=== PATIENT | male | born 1950 | race Caucasian/White ===

== ENCOUNTER 2016-11-09 17:02 | Emergency (ER) | payer OTHER, MEDICARE, BC ==
--- NOTE | 2016-11-09 17:20 | ER Document Report ---
ED Medical Screen (RME) - General Stated Complaint: SMASHED FINGER Mode of Arrival: Ambulatory Information source: Patient Notes: Patient presents to the emergency department with crush injury to his left fourth finger. Patient reports he shut the door on his finger. Tetanus is up-to- date. TRAVEL OUTSIDE OF THE [place] IN LAST 30 DAYS: No - Related Data Allergies/Adverse Reactions: No Known Allergies Allergy (Verified 07/30/15 08:35) Past Medical History - Past Medical History Cardiac Medical History: Reports: Hx Hypercholesterolemia Renal/ Medical History: Reports: Hx Benign Prostatic Hyperplasia GI Medical History: Reports: Hx Gastroesophageal Reflux Disease Past Surgical History: Reports: Hx Cholecystectomy - 2011 - Immunizations Hx Diphtheria, Pertussis, Tetanus Vaccination: Yes Physical Exam - Vital signs Vitals: Temp Pulse Resp BP Pulse Ox 98.0 F 61 16 138/71 H 98 11/09/16 17:17 11/09/16 17:17 11/09/16 17:17 11/09/16 17:17 11/09/16 17:17 Course - Vital Signs Vital signs: Temp Pulse Resp BP Pulse Ox 98.0 F 61 16 138/71 H 98 11/09/16 17:17 11/09/16 17:17 11/09/16 17:17 11/09/16 17:17 11/09/16 17:17
[2016-11-09] MEDS ORDERED: LIDOCAINE 1% INJ-PF (10 MG/ML) 30 ML SDV INJ ONE (17:52)
--- NOTE | 2016-11-09 18:38 | ER Document Report ---
ED Hand/Wrist Injury - General Chief Complaint: Finger Injury Stated Complaint: SMASHED FINGER Mode of Arrival: Ambulatory Information source: Patient TRAVEL OUTSIDE OF THE [place] IN LAST 30 DAYS: No - HPI Injury to: Ring finger - Related Data Allergies/Adverse Reactions: No Known Allergies Allergy (Verified 11/09/16 17:20) Past Medical History - General Information source: Patient - Social History Smoking Status: Never Smoker Cigarette use (# per day): No Chew tobacco use (# tins/day): No Frequency of alcohol use: None Drug Abuse: None Family History: Reviewed & Not Pertinent Patient has suicidal ideation: No Patient has homicidal ideation: No - Past Medical History Cardiac Medical History: Reports: Hx Hypercholesterolemia Renal/ Medical History: Reports: Hx Benign Prostatic Hyperplasia. Denies: Hx Peritoneal Dialysis GI Medical History: Reports: Hx Gastroesophageal Reflux Disease Past Surgical History: Reports: Hx Cholecystectomy - 2011 - Immunizations Hx Diphtheria, Pertussis, Tetanus Vaccination: Yes Review of Systems - Review of Systems Constitutional: No symptoms reported EENT: No symptoms reported Cardiovascular: No symptoms reported Respiratory: No symptoms reported Gastrointestinal: No symptoms reported Genitourinary: No symptoms reported Male Genitourinary: No symptoms reported Musculoskeletal: No symptoms reported Skin: No symptoms reported Hematologic/Lymphatic: No symptoms reported Neurological/Psychological: No symptoms reported Physical Exam - Vital signs Vitals: Temp Pulse Resp BP Pulse Ox 98.0 F 61 16 138/71 H 98 11/09/16 17:17 11/09/16 17:17 11/09/16 17:17 11/09/16 17:17 11/09/16 17:17 Interpretation: Normal - General General appearance: Appears well, Alert - HEENT Head: Normocephalic, Atraumatic Eyes: Normal Pupils: PERRL - Respiratory Respiratory status: No respiratory distress Chest status: Nontender Breath sounds: Normal Chest palpation: Normal - Cardiovascular Rhythm: Regular Heart sounds: Normal auscultation Murmur: No - Abdominal Inspection: Normal Distension: No distension Bowel sounds: Normal Tenderness: Nontender Organomegaly: No organomegaly - Back Back: Normal, Nontender - Extremities General upper extremity: Normal inspection, Nontender, Normal color, Normal ROM , Normal temperature General lower extremity: Normal inspection, Nontender, Normal color, Normal ROM , Normal temperature, Normal weight bearing. No: Edith's sign Hand: Tender, Other - Rainer fracture left ring finger open - Neurological Neuro grossly intact: Yes Cognition: Normal Orientation: AAOx4 [place] Coma Scale Eye Opening: Spontaneous Mattie Coma Scale Verbal: Oriented [place] Coma Scale Motor: Obeys Commands [place] Coma Scale Total: 15 Speech: Normal Motor strength normal: LUE, RUE, LLE, RLE Sensory: Normal - Psychological Associated symptoms: Normal affect, Normal mood - Skin Skin Temperature: Warm Skin Moisture: Dry Skin Color: Normal Course - Vital Signs Vital signs: Temp Pulse Resp BP Pulse Ox 98.0 F 61 16 138/71 H 98 11/09/16 17:17 11/09/16 17:17 11/09/16 17:17 11/09/16 17:17 11/09/16 17:17 - Diagnostic Test Radiology reviewed: Reports reviewed Procedures - Laceration/Wound Repair Left 4th digit Wound length (cm): 2 Wound's Depth, Shape: Linear, Nail-avulsed Laceration pre-procedure: Betadine prep applied Anesthetic type: 1% Lidocaine Wound explored: Clean Wound Debrided: Minimal Wound Repaired With: Sutures Suture Size/Type: 4:0, Ethilon Layer Closure?: No Post-procedure wound care: Sterile dressing applied, Splint applied Post-procedure NV exam normal: Yes Complications: No Discharge - Discharge Clinical Impression: Closed fracture of tuft of distal phalanx of finger Disposition: HOME, SELF-CARE Additional Instructions: Laceration Care Your laceration has been sutured to keep the skin edges aligned during healing. The time of suture removal depends on the nature and location of your cut. Please follow the care instructions the doctor has outlined for you and return for further care, according to the schedule you've been given. Keep the wound and dressing clean. Unless you were told otherwise, you may shower daily, blotting the wound dry with a clean, unused towel. At other times, If the dressing gets wet or blood soaked, remove it and blot the wound dry, then reapply a new dressing. Unless you were instructed otherwise, dressings should be changed at least daily. If any signs of infection occur (swelling, redness, increasing tenderness, red streaks, tender lumps in the armpit or groin above the laceration, or fever) , see the doctor immediately. Must follow-up with regular doctor in 2 days for reevaluation 10 days for suture removal and follow-up for an orthopedist referral for open tuft fracture. Prescriptions: Tramadol HCl [Ultram 50 mg Tablet] 50 mg PO Q6HP PRN #40 tablet PRN Reason:
[2016-11-09 18:52] VITALS: BP 120/68
== END 2016-11-09 18:48 | disposition home or self-care (01) ==
LOC: ER 17:02
PROC: 0HQGXZZ Repair Left Hand Skin, External Approach (ICD-10-PCS; principal; 2016-11-09)
DX: S62.635B Displaced fracture of distal phalanx of left ring finger, initial encounter for open fracture (principal); X58.XXXA Exposure to other specified factors, initial encounter
CPT/HCPCS: 99283

== ENCOUNTER 2018-09-16 15:16 | Observation (INO) | payer OTHER, MEDICARE, BC ==
[2018-09-16] MEDS ORDERED: IPRATROPIUM/ALBUTEROL 0.5-2.5 MG/3 ML AMPUL NEB ONE (15:44)
--- NOTE | 2018-09-16 15:47 | ER Document Report ---
ED General - General Chief Complaint: Flu Symptoms Stated Complaint: CHEST CONGESTION, COUGH Time Seen by Provider: 09/16/18 15:44 Mode of Arrival: Ambulatory Information source: Patient Notes: This is a 68-year-old man with no significant medical problems who presents to the emergency room with progressively worsening cough, shortness of breath and congestion for the past week. Patient did visit family members 2 weeks ago and they had documented flu. He started developing symptoms and given his fluid exposure, he was started on Tamiflu and just finished yesterday. He presents to the emergency room with worsening cough, congestion, shortness of breath. Patient has no history of smoking. His only medicines include fish oil and he recently started guaifenesin yesterday. TRAVEL OUTSIDE OF THE [place] IN LAST 30 DAYS: No - HPI Onset: Last week Onset/Duration: Gradual Quality of pain: No pain Severity: None Pain Level: Denies Associated symptoms: Chills, Productive cough, Fever, Shortness of breath Exacerbated by: Denies Relieved by: Denies Similar symptoms previously: No Recently seen / treated by doctor: Yes - Related Data Allergies/Adverse Reactions: No Known Allergies Allergy (Verified 09/16/18 15:17) Past Medical History - General Information source: Patient - Social History Smoking Status: Never Smoker Cigarette use (# per day): No Chew tobacco use (# tins/day): No Frequency of alcohol use: None Drug Abuse: None Lives with: Alone Family History: Reviewed & Not Pertinent Patient has suicidal ideation: No Patient has homicidal ideation: No - Past Medical History Cardiac Medical History: Reports: Hx Hypercholesterolemia Renal/ Medical History: Reports: Hx Benign Prostatic Hyperplasia. Denies: Hx Peritoneal Dialysis GI Medical History: Reports: Hx Gastroesophageal Reflux Disease Past Surgical History: Reports: Hx Cholecystectomy - 2011 - Immunizations Hx Diphtheria, Pertussis, Tetanus Vaccination: Yes Review of Systems - Review of Systems Constitutional: Chills, Fever EENT: No symptoms reported Cardiovascular: No symptoms reported Respiratory: See HPI Gastrointestinal: No symptoms reported Genitourinary: No symptoms reported Male Genitourinary: No symptoms reported Musculoskeletal: No symptoms reported Skin: No symptoms reported Hematologic/Lymphatic: No symptoms reported Neurological/Psychological: No symptoms reported Physical Exam - Vital signs Vitals: Temp Pulse Resp BP Pulse Ox 98.3 F 80 18 128/66 H 94 09/16/18 15:19 09/16/18 15:19 09/16/18 15:19 09/16/18 15:19 09/16/18 15:19 Notes: Physical exam: GENERAL: 68-year-old man, ambulating around room. He has obvious cough and wheezing. His oxygen saturations 94%. He is afebrile. HEAD: Atraumatic, normocephalic. EYES: Pupils equal round and reactive to light, extraocular movements intact, sclera anicteric, conjunctiva are normal. ENT: TMs normal, nares patent, oropharynx clear without exudates. Moist mucous membranes. NECK: Normal range of motion, supple without obvious mass or JVD. LUNGS: Tight breath sounds with bilateral wheezing and rhonchi. HEART: Regular rate and rhythm without murmurs, rubs or gallops. ABDOMEN: Soft, normoactive bowel sounds. No tenderness to palpation. No guarding, no rebound. No masses appreciated. EXTREMITIES: Normal range of motion, no pitting or edema. No clubbing or cyanosis. NEUROLOGICAL: Cranial nerves II through XII grossly intact. Normal speech, moving all extremities. PSYCH: Normal mood, normal affect. SKIN: Warm, Dry, normal turgor, no rashes or lesions noted. Course - Re-evaluation Re-evalutation: 09/17/18 01:14 Note: The patient's clinical presentation is consistent with pneumonia. It does appear that he is got some infiltrate on chest x-ray. However, he does appear to have some cardiomegaly and there is a question on the equal chest x- ray report that there may be some pulmonary congestion. Clinically, the patient does not have any CHF and his BNP is normal. - Vital Signs Vital signs: Temp Pulse Resp BP Pulse Ox 98.6 F 81 16 131/77 H 95 09/16/18 20:17 09/16/18 20:20 09/16/18 20:20 09/16/18 20:17 09/17/18 00:00 - Laboratory Result Diagrams: 09/16/18 16:00 09/16/18 16:00 Laboratory results interpreted by me: 09/16/18 09/16/18 16:00 16:00 Plt Count 125 L Carbon Dioxide 31 H Total Protein 6.1 L - Diagnostic Test Radiology reviewed: Image reviewed, Reports reviewed - Pneumonia Discharge - Discharge Clinical Impression: pneumonia Condition: Stable Disposition: ADMITTED INPATIENT Admitting Provider: Sang Feldman Unit Admitted: Medical Floor
[2018-09-16 16:19] LABS: ABSOLUTE EOSINOPHILS # (AUTO) 0.1 10^3/uL (0.0-0.6); ABSOLUTE LYMPHOCYTES (AUTO) 0.7 10^3/uL (0.5-4.7); ABSOLUTE MONOCYTES (AUTO) 0.3 10^3/uL (0.1-1.4); BASOPHILS % (AUTO) 0.7 % (0-2); EOSINOPHILS % (AUTO) 1.5 % (0-6); HEMATOCRIT 44.6 % (37.9-51.0); HEMOGLOBIN 15.4 g/dL (13.5-17.0); LYMPHOCYTES % (AUTO) 16.4 % (13-45); MEAN CORPUSCULAR HEMOGLOBIN 31.7 pg (27.0-33.4); MEAN CORPUSCULAR HGB CONC 34.4 g/dL (32.0-36.0); MEAN CORPUSCULAR VOLUME 92 fl (80-97); MONOCYTES % (AUTO) 8.6 % (3-13); PLATELET COUNT 125 10^3/uL (150-450); RED BLOOD COUNT 4.84 10^6/uL (4.35-5.55); RED CELL DISTRIBUTION WIDTH 13.3 % (11.5-14.0); SEGMENTED NEUTROPHILS % (AUTO) 72.8 % (42-78); TOTAL CELLS COUNTED % (AUTO) 100 %; WHITE BLOOD COUNT 4.1 10^3/uL (4.0-10.5)
[2018-09-16 16:39] LABS: ALANINE AMINOTRANSFERASE 45 U/L (21-72); ALBUMIN 3.7 g/dL (3.5-5.0); ALKALINE PHOSPHATASE 66 U/L (38-126); ANION GAP 9 (5-19); ASPARTATE AMINO TRANSFERASE 42 U/L (17-59); BILIRUBIN,DIRECT 0.4 mg/dL (0.0-0.4); BLOOD UREA NITROGEN 15 mg/dL (7-20); CALCIUM 8.9 mg/dL (8.4-10.2); CARBON DIOXIDE 31 mmol/L (22-30); CHLORIDE 102 mmol/L (98-107); GLUCOSE 80 mg/dL (75-110); POTASSIUM 4.5 mmol/L (3.6-5.0); SODIUM 141.5 mmol/L (137-145); TOTAL PROTEIN 6.1 g/dL (6.3-8.2)
--- NOTE | 2018-09-16 16:41 | RADIOLOGY REPORT (SQ) ---
EXAM DESCRIPTION: CHEST 2 VIEWS COMPLETED DATE/TIME: 09/16/2018 4:27 pm REASON FOR STUDY: cough, sob COMPARISON: None. EXAM PARAMETERS: NUMBER OF VIEWS: two views TECHNIQUE: Digital Frontal and Lateral radiographic views of the chest acquired. RADIATION DOSE: NA LIMITATIONS: none FINDINGS: LUNGS AND PLEURA: Elevated right hemidiaphragm. Possible increased opacification the medi al right base. Mild pulmonary edema. MEDIASTINUM AND HILAR STRUCTURES: No masses or contour abnormalities. HEART AND VASCULAR STRUCTURES: Cardiomegaly. BONES: No acute findings. HARDWARE: None in the chest. OTHER: No other significant finding. IMPRESSION: Cardiomegaly with mild pulmonary edema. Cannot exclude a limited right middle lobe or l ower lobe pneumonia. TECHNICAL DOCUMENTATION: JOB ID: [id number] [employer]- All Rights Reserved Reading location - IP/workstation name: [email or web address]
[2018-09-16 17:00] LABS: A TYPE INFLUENZA AG NEGATIVE (NEGATIVE); B INFLUENZA AG NEGATIVE (NEGATIVE)
[2018-09-16] MEDS ORDERED: CEFTRIAXONE 1 GM/D5W RTU 1 GM/50 ML RTUPB IV ONE (17:40)
[2018-09-16] MEDS ORDERED: AZITHROMYCIN INJ 500 MG VIAL IV ONE (17:41)
[2018-09-16 18:14] LABS: NT PRO BNP 254 pg/mL (5-900)
[2018-09-16 18:17] LABS: TROPONIN I < 0.012 ng/mL
[2018-09-16] MEDS ORDERED: NORMAL SALINE 1000 ML 1,000 ML IV PRN (18:34)
[2018-09-16] MEDS ORDERED: IPRATROPIUM/ALBUTEROL 0.5-2.5 MG/3 ML AMPUL NEB PRN (18:34)
--- NOTE | 2018-09-16 18:55 | PDOC H&P ---
History of Present Illness Admission Date/PCP: [facility] Patient complains of: Shortness of breath. History of Present Illness: ISABELLA CROOKS is a 68 year old male past medical history of dyslipidemia, BPH , GERD presented to ED complaining of worsening shortness of breath, pleuritic chest pain, fever and chills. Patient dates that he was exposed to family friends who were flu positive about a week ago, following 2 days he started developing mild shortness of breath and cough, he went to [place] to see his PCP and was started on prophylactic Tamiflu which she finished yesterday. He states that his shortness of breath, productive cough and pleuritic chest pain progressively got worse and decided come to the ED. ED was diagnosed with community-acquired pneumonia and hospital was consulted for admission. He received his flu and pneumonia vaccine this year. He denies any nausea, vomiting, diarrhea, constipation, abdominal pain or any urinary symptoms. He denies history of smoking, drinking or illicit drug abuse. Past Medical History Cardiac Medical History: Reports: Hyperlipidema GI Medical History: Reports: Gastroesophageal Reflux Disease Past Surgical History Past Surgical History: Reports: Cholecystectomy - 2011 Social History Smoking Status: Never Smoker Family History Family History: Reviewed & Not Pertinent Parental Family History Reviewed: Yes Children Family History Reviewed: Yes Sibling(s) Family History Reviewed.: Yes Medication/Allergy Home Medications: Omeprazole 06/05/14 Simvastatin 1 tab PO 06/05/14 Terazosin HCl [Hytrin] 1 cap PO DAILY 06/05/14 Oxycodone HCl/Acetaminophen [Percocet 5-325 mg Tablet] 1 tab PO Q4H PRN #30 tablet 04/14/15 Oxycodone HCl/Acetaminophen [Percocet 5-325 mg Tablet] 1 - 2 tab PO ASDIR PRN # 15 tablet 07/30/15 Tramadol HCl [Ultram 50 mg Tablet] 50 mg PO Q6HP PRN #40 tablet 11/09/16 Allergies/Adverse Reactions: No Known Allergies Allergy (Verified 09/16/18 15:17) Review of Systems Constitutional: PRESENT: as per HPI Cardiovascular: PRESENT: as per HPI Respiratory: PRESENT: as per HPI Genitourinary: PRESENT: as per HPI Neurological: PRESENT: as per HPI Physical Exam Vital Signs: Temp Pulse Resp BP Pulse Ox 98.3 F 80 18 128/66 H 94 09/16/18 15:19 09/16/18 15:19 09/16/18 15:19 09/16/18 15:19 09/16/18 15:19 Intake & Output 09/15/18 09/16/18 09/17/18 06:59 06:59 06:59 Weight 77.3 kg General appearance: PRESENT: no acute distress, well-developed, well-nourished Respiratory exam: PRESENT: clear to auscultation guille, crackles, decreased breath sounds, tachypnea. ABSENT: rales, rhonchi, wheezes Cardiovascular exam: PRESENT: RRR. ABSENT: diastolic murmur, rubs, systolic murmur Pulses: PRESENT: normal dorsalis pedis pul GI/Abdominal exam: PRESENT: normal bowel sounds, soft. ABSENT: distended, guarding, mass, organolmegaly, rebound, tenderness Extremities exam: PRESENT: full ROM. ABSENT: calf tenderness, clubbing, pedal edema Neurological exam: PRESENT: alert, awake, oriented to person, oriented to place , oriented to time, oriented to situation, CN II-XII grossly intact. ABSENT: motor sensory deficit Skin exam: PRESENT: dry, intact, warm. ABSENT: cyanosis, rash Results Laboratory Results: 09/16/18 16:00 09/16/18 16:00 09/16/18 09/16/18 16:00 16:00 WBC 4.1 RBC 4.84 Hgb 15.4 Hct 44.6 MCV 92 MCH 31.7 MCHC 34.4 RDW 13.3 Plt Count 125 L Seg Neutrophils % 72.8 Lymphocytes % 16.4 Monocytes % 8.6 Eosinophils % 1.5 Basophils % 0.7 Absolute Neutrophils 3.0 Absolute Lymphocytes 0.7 Absolute Monocytes 0.3 Absolute Eosinophils 0.1 Absolute Basophils 0.0 Sodium 141.5 Potassium 4.5 Chloride 102 Carbon Dioxide 31 H Anion Gap 9 BUN 15 Creatinine 1.01 Est GFR ( Amer) > 60 Est GFR (Non-Af Amer) > 60 Glucose 80 Calcium 8.9 Total Bilirubin 1.0 AST 42 ALT 45 Alkaline Phosphatase 66 Total Protein 6.1 L Albumin 3.7 09/16/18 16:00 Troponin I < 0.012 NT-Pro-B Natriuret Pep 254 Impressions: Chest X-Ray 09/16/18 15:45 IMPRESSION: Cardiomegaly with mild pulmonary edema. Cannot exclude a limited right middle lobe or lower lobe pneumonia. Assessment & Plan - Diagnosis (1) Pneumonia Is this a current diagnosis for this admission?: Yes Plan: Likely community-acquired. CURB-65 score of 1. DuoNeb, antitussives, empiric antibiotics. Follow-up sputum, blood culture. (2) Dyslipidemia Is this a current diagnosis for this admission?: Yes Plan: Restart home meds. (3) GERD (gastroesophageal reflux disease) Is this a current diagnosis for this admission?: Yes Plan: Denies any weight changes, melena or hematemesis. Restart PPIs. Out patient GI follow-up. (4) BPH (benign prostatic hyperplasia) Is this a current diagnosis for this admission?: Yes Plan: Restart home meds.
[2018-09-16] MEDS: GUAIFENESIN 600 MG TABLET.SA PO SCH ×2 (19:53→22:00)
[2018-09-16] MEDS: IPRATROPIUM/ALBUTEROL 0.5-2.5 MG/3 ML AMPUL NEB SCH (20:18)
--- NOTE | 2018-09-16 21:08 | EKG REPORT ---
SEVERITY:- OTHERWISE NORMAL ECG - SINUS RHYTHM ATRIAL PREMATURE COMPLEX LOW VOLTAGE IN FRONTAL LEADS : Confirmed by: Lisa Russo MD 16-Sep-2018 21:07:40
[2018-09-16] MEDS: HEPARIN SOD (PORCINE) 5,000 UNIT/ML 1 ML SYRINGE SUBCUT SCH (22:01)
[2018-09-17] MEDS: IPRATROPIUM/ALBUTEROL 0.5-2.5 MG/3 ML AMPUL NEB SCH ×4 (01:42→20:25)
[2018-09-17] MEDS: HEPARIN SOD (PORCINE) 5,000 UNIT/ML 1 ML SYRINGE SUBCUT SCH ×3 (05:27→21:34)
[2018-09-17 05:47] LABS: ABSOLUTE LYMPHOCYTES (AUTO) 0.9 10^3/uL (0.5-4.7); ABSOLUTE MONOCYTES (AUTO) 0.4 10^3/uL (0.1-1.4); ABSOLUTE NEUT (AUTO) 3.8 10^3/uL (1.7-8.2); BASOPHILS % (AUTO) 0.3 % (0-2); EOSINOPHILS % (AUTO) 0.5 % (0-6); HEMATOCRIT 41.8 % (37.9-51.0); HEMOGLOBIN 14.3 g/dL (13.5-17.0); MEAN CORPUSCULAR HEMOGLOBIN 31.3 pg (27.0-33.4); MEAN CORPUSCULAR HGB CONC 34.1 g/dL (32.0-36.0); MEAN CORPUSCULAR VOLUME 92 fl (80-97); MONOCYTES % (AUTO) 8.5 % (3-13); PLATELET COUNT 105 10^3/uL (150-450); RED BLOOD COUNT 4.55 10^6/uL (4.35-5.55); RED CELL DISTRIBUTION WIDTH 13.3 % (11.5-14.0); SEGMENTED NEUTROPHILS % (AUTO) 72.7 % (42-78); TOTAL CELLS COUNTED % (AUTO) 100 %; WHITE BLOOD COUNT 5.2 10^3/uL (4.0-10.5)
[2018-09-17] MEDS ORDERED: LANSOPRAZOLE 30 MG TAB.RAP.DR PO SCH (06:00)
[2018-09-17] MEDS: GUAIFENESIN/CODEINE PHOS 100-10 MG/ 5 ML UDC PO PRN ×2 (06:01→14:51)
[2018-09-17 06:04] LABS: ALANINE AMINOTRANSFERASE 37 U/L (21-72); ALBUMIN 3.2 g/dL (3.5-5.0); ALKALINE PHOSPHATASE 65 U/L (38-126); ANION GAP 11 (5-19); ASPARTATE AMINO TRANSFERASE 32 U/L (17-59); BILIRUBIN,DIRECT 0.2 mg/dL (0.0-0.4); BILIRUBIN,TOTAL 0.7 mg/dL (0.2-1.3); BLOOD UREA NITROGEN 13 mg/dL (7-20); CALCIUM 8.5 mg/dL (8.4-10.2); CARBON DIOXIDE 25 mmol/L (22-30); CHLORIDE 103 mmol/L (98-107); GLUCOSE 99 mg/dL (75-110); POTASSIUM 4.5 mmol/L (3.6-5.0); SODIUM 138.9 mmol/L (137-145); TOTAL PROTEIN 5.5 g/dL (6.3-8.2)
[2018-09-17] MEDS: LEVOFLOXACIN 750 MG TABLET PO SCH (09:48)
[2018-09-17] MEDS: GUAIFENESIN 600 MG TABLET.SA PO SCH ×2 (09:48→22:11)
[2018-09-17] MEDS: TAMSULOSIN HCL 0.4 MG CAP.SR.24H PO SCH (09:48)
[2018-09-17] MEDS ORDERED: ATORVASTATIN CALCIUM 40 MG TABLET PO SCH (10:00)
--- NOTE | 2018-09-17 13:38 | PDOC PROGRESS REPORT ---
Subjective Progress Note for:: 09/17/18 Subjective:: ISABELLA CROOKS is a 68 year old male past medical history of dyslipidemia, BPH , GERD presented to ED complaining of worsening shortness of breath, pleuritic chest pain, fever and chills. Patient dates that he was exposed to family friends who were flu positive about a week ago, following 2 days he started developing mild shortness of breath and cough, he went to [place] to see his PCP and was started on prophylactic Tamiflu which she finished yesterday. He states that his shortness of breath, productive cough and pleuritic chest pain progressively got worse and decided come to the ED. ED was diagnosed with community-acquired pneumonia and hospital was consulted for admission. He received his flu and pneumonia vaccine this year. He denies any nausea, vomiting, diarrhea, constipation, abdominal pain or any urinary symptoms. He denies history of smoking, drinking or illicit drug abuse states that he has been exposed to secondhand smoking. 09/17/2018. No acute events overnight. Patient has significant clinical improvement however still wheezing. Denies any fever, chills, nausea, vomiting , diarrhea or constipation. Cough has improved. Reason For Visit: COMMUNITY ACQUIRED PNEUMONIA Physical Exam Vital Signs: Temp Pulse Resp BP Pulse Ox 98.6 F 71 16 107/67 96 09/17/18 08:10 09/17/18 08:29 09/17/18 08:29 09/17/18 08:10 09/17/18 08:29 Pulse Oximeter Continuous Start: 09/16/18 18: 34 Freq: RTQ4 Status: Active Document 09/17/18 12:00 [facility] (Rec: 09/17/18 12:17 [facility] [id number]) Pulse Oximetry Assessment Equipment Usage Equipment Standby Continuous SpO2 Machine # 14 Additional RT Notes Other pt. using restroom Intake & Output 09/16/18 09/17/18 09/18/18 06:59 06:59 06:59 Intake Total 390 1000 Balance 390 1000 Weight 77.3 kg General appearance: PRESENT: no acute distress, well-developed, well-nourished Respiratory exam: PRESENT: clear to auscultation guille, prolonged expiratory phas , wheezes. ABSENT: rales, rhonchi Cardiovascular exam: PRESENT: RRR. ABSENT: diastolic murmur, rubs, systolic murmur Pulses: PRESENT: normal dorsalis pedis pul GI/Abdominal exam: PRESENT: normal bowel sounds, soft. ABSENT: distended, guarding, mass, organolmegaly, rebound, tenderness Results Laboratory Results: 09/17/18 04:33 09/17/18 04:33 09/17/18 09/17/18 04:33 04:33 WBC 5.2 RBC 4.55 Hgb 14.3 Hct 41.8 MCV 92 MCH 31.3 MCHC 34.1 RDW 13.3 Plt Count 105 L Seg Neutrophils % 72.7 Lymphocytes % 18.0 Monocytes % 8.5 Eosinophils % 0.5 Basophils % 0.3 Absolute Neutrophils 3.8 Absolute Lymphocytes 0.9 Absolute Monocytes 0.4 Absolute Eosinophils 0.0 Absolute Basophils 0.0 Sodium 138.9 Potassium 4.5 Chloride 103 Carbon Dioxide 25 Anion Gap 11 BUN 13 Creatinine 0.96 Est GFR ( Amer) > 60 Est GFR (Non-Af Amer) > 60 Glucose 99 Calcium 8.5 Total Bilirubin 0.7 AST 32 ALT 37 Alkaline Phosphatase 65 Total Protein 5.5 L Albumin 3.2 L Impressions: Chest X-Ray 09/16/18 15:45 IMPRESSION: Cardiomegaly with mild pulmonary edema. Cannot exclude a limited right middle lobe or lower lobe pneumonia. Assessment & Plan - Diagnosis (1) Pneumonia Is this a current diagnosis for this admission?: Yes Plan: Likely community-acquired. CURB-65 score of 1. DuoNeb, antitussives, empiric antibiotics. Follow-up sputum, blood culture. (2) COPD exacerbation Is this a current diagnosis for this admission?: Yes Plan: Likely undiagnosed COPD secondary to chronic secondhand smoke exposure. Has significant wheezing associated with his pneumonia. Start on DuoNeb, glucocorticoids and empiric antibiotics. Will start on long- acting beta agonist and long-acting antimuscarinic's. Outpatient pulmonology follow-up (3) Dyslipidemia Is this a current diagnosis for this admission?: Yes Plan: Restart home meds. (4) GERD (gastroesophageal reflux disease) Is this a current diagnosis for this admission?: Yes Plan: Denies any weight changes, melena or hematemesis. Restart PPIs. Out patient GI follow-up. (5) BPH (benign prostatic hyperplasia) Is this a current diagnosis for this admission?: Yes Plan: Restart home meds.
[2018-09-17] MEDS ORDERED: METHYLPREDNISOLONE INJ 125 MG/2 ML SDV ONE (14:35)
[2018-09-17] MEDS: METHYLPREDNISOLONE INJ 40 MG/1 ML SDV IV SCH ×2 (14:40→22:13)
[2018-09-17] MEDS: LANSOPRAZOLE 30 MG TAB.RAP.DR PO SCH (17:20)
[2018-09-17] MEDS: SALMETEROL XINAFOATE DISKUS 50 MCG/1 DOSE 28 DOSE IH SCH (22:13)
[2018-09-17] MEDS ORDERED: BENZOCAINE/MENTHOL SORE THROAT LOZENGE BUCCAL PRN (23:32)
[2018-09-18] MEDS: IPRATROPIUM/ALBUTEROL 0.5-2.5 MG/3 ML AMPUL NEB SCH ×2 (02:09→07:22)
[2018-09-18 05:14] LABS: ABSOLUTE LYMPHOCYTES (AUTO) 0.3 10^3/uL (0.5-4.7); ABSOLUTE MONOCYTES (AUTO) 0.1 10^3/uL (0.1-1.4); BASOPHILS % (AUTO) 0.1 % (0-2); HEMATOCRIT 43.4 % (37.9-51.0); HEMOGLOBIN 14.8 g/dL (13.5-17.0); LYMPHOCYTES % (AUTO) 7.6 % (13-45); MEAN CORPUSCULAR HEMOGLOBIN 31.2 pg (27.0-33.4); MEAN CORPUSCULAR VOLUME 92 fl (80-97); MONOCYTES % (AUTO) 2.2 % (3-13); PLATELET COUNT 115 10^3/uL (150-450); RED BLOOD COUNT 4.73 10^6/uL (4.35-5.55); RED CELL DISTRIBUTION WIDTH 13.1 % (11.5-14.0); SEGMENTED NEUTROPHILS % (AUTO) 90.1 % (42-78); TOTAL CELLS COUNTED % (AUTO) 100 %; WHITE BLOOD COUNT 4.5 10^3/uL (4.0-10.5)
[2018-09-18] MEDS: HEPARIN SOD (PORCINE) 5,000 UNIT/ML 1 ML SYRINGE SUBCUT SCH (05:38)
[2018-09-18] MEDS: LANSOPRAZOLE 30 MG TAB.RAP.DR PO SCH (05:38)
[2018-09-18 05:42] LABS: ALANINE AMINOTRANSFERASE 35 U/L (21-72); ALBUMIN 3.3 g/dL (3.5-5.0); ALKALINE PHOSPHATASE 60 U/L (38-126); ANION GAP 12 (5-19); ASPARTATE AMINO TRANSFERASE 24 U/L (17-59); BILIRUBIN,DIRECT 0.2 mg/dL (0.0-0.4); BILIRUBIN,TOTAL 0.5 mg/dL (0.2-1.3); BLOOD UREA NITROGEN 15 mg/dL (7-20); CALCIUM 9.4 mg/dL (8.4-10.2); CARBON DIOXIDE 25 mmol/L (22-30); CHLORIDE 104 mmol/L (98-107); GLUCOSE 195 mg/dL (75-110); POTASSIUM 4.8 mmol/L (3.6-5.0); SODIUM 141.2 mmol/L (137-145); TOTAL PROTEIN 5.8 g/dL (6.3-8.2)
[2018-09-18] MEDS ORDERED: TIOTROPIUM BROMIDE DPI 5 CAP/KIT (18 MCG/CAP) IH SCH (10:00)
[2018-09-18] MEDS: LEVOFLOXACIN 750 MG TABLET PO SCH (11:23)
[2018-09-18] MEDS: GUAIFENESIN 600 MG TABLET.SA PO SCH (11:23)
[2018-09-18] MEDS: TAMSULOSIN HCL 0.4 MG CAP.SR.24H PO SCH (11:23)
[2018-09-18] MEDS: METHYLPREDNISOLONE INJ 40 MG/1 ML SDV IV SCH (11:24)
[2018-09-18] MEDS: SALMETEROL XINAFOATE DISKUS 50 MCG/1 DOSE 28 DOSE IH SCH (11:24)
--- NOTE | 2018-09-18 13:17 | PDOC DISCHARGE SUMMARY ---
General - Admit/Disc Date/PCP Admission Date/Primary Care Provider: 09/16/18 18:38 [facility] Discharge Date: 09/18/18 - Discharge Diagnosis (1) Pneumonia Is this a current diagnosis for this admission?: Yes (2) COPD exacerbation Is this a current diagnosis for this admission?: Yes (3) Dyslipidemia Is this a current diagnosis for this admission?: Yes (4) GERD (gastroesophageal reflux disease) Is this a current diagnosis for this admission?: Yes (5) BPH (benign prostatic hyperplasia) Is this a current diagnosis for this admission?: Yes - Additional Information Resuscitation Status: Full Code Discharge Diet: As Tolerated Discharge Activity: Activity As Tolerated Prescriptions: Levofloxacin [Levaquin 750 mg Tablet] 750 mg PO DAILY 3 Days #3 tablet Prednisone 40 mg PO DAILY 3 Days #3 tablet Home Medications: Omeprazole 20 mg PO DAILY 06/05/14 Simvastatin 1 tab PO QHS 06/05/14 Terazosin HCl [Hytrin] 1 mg PO QHS 06/05/14 Calcium Carbonate [Calcium] 1,200 mg PO DAILY 09/16/18 Ergocalciferol (Vitamin D2) [Vitamin D] 400 unit PO DAILY 09/16/18 [place]-3 Fatty Acids/Fish Oil [Fish Oil 1,000 mg Capsule] 3 each PO DAILY Levofloxacin [Levaquin 750 mg Tablet] 750 mg PO DAILY 3 Days #3 tablet 09/18/18 Prednisone 40 mg PO DAILY 3 Days #3 tablet 09/18/18 History of Present Illness History of Present Illness: ISABELLA CROOKS is a 68 year old male past medical history of dyslipidemia, BPH , GERD presented to ED complaining of worsening shortness of breath, pleuritic chest pain, fever and chills. Patient dates that he was exposed to family friends who were flu positive about a week ago, following 2 days he started developing mild shortness of breath and cough, he went to [place] to see his PCP and was started on prophylactic Tamiflu which she finished yesterday. He states that his shortness of breath, productive cough and pleuritic chest pain progressively got worse and decided come to the ED. ED was diagnosed with community-acquired pneumonia and hospital was consulted for admission. He received his flu and pneumonia vaccine this year. He denies any nausea, vomiting, diarrhea, constipation, abdominal pain or any urinary symptoms. He denies history of smoking, drinking or illicit drug abuse except for chronic secondhand tobacco exposure. Hospital Course Hospital Course: (1) Pneumonia Likely community-acquired. CURB-65 score of 1. DuoNeb, antitussives, empiric antibiotics. Sputum culture negative. Blood culture +1/4 gram-positive cocci. Received total of 2 days of IV antibiotics and patient and switched to levofloxacin to complete total of 5 days. (2) COPD exacerbation Likely undiagnosed COPD secondary to chronic secondhand smoke exposure. Significant improving in his wheezing being started on glucocorticoids. Start on DuoNeb, glucocorticoids and empiric antibiotics. Will start on long- acting beta agonist and long-acting antimuscarinic's. If total of 2 days of IV glucocorticoids and patient and was discharged on 3 more doses. To complete 5 total days. Encouraged to follow-up with pulmonology as outpatient for PFT. (3) Dyslipidemia Started on home meds. (4) GERD (gastroesophageal reflux disease) Denies any weight changes, melena or hematemesis. Restart PPIs. Out patient GI follow-up. (5) BPH (benign prostatic hyperplasia) Restarted on home meds. Physical Exam Vital Signs: Temp Pulse Resp BP Pulse Ox 98.1 F 108 H 24 H 123/79 94 09/18/18 08:48 09/18/18 08:48 09/18/18 08:48 09/18/18 08:48 09/18/18 12:55 Pulse Oximeter Continuous Start: 09/16/18 18: 34 Freq: RTQ4 Status: Active Document 09/18/18 12:55 [facility] (Rec: 09/18/18 12:55 [facility] [id number]) Pulse Oximetry Assessment Oxygen Saturation (92-100) 94 Oxygen Delivery Method Room Air Fraction of Inspired Oxygen (FIO2) 21 Equipment Usage Equipment in Use Continuous SpO2 Machine # N [id number] Intake & Output 09/17/18 09/18/18 09/19/18 06:59 06:59 06:59 Intake Total 390 2822 Balance 390 2822 Weight 77.3 kg 76.1 kg General appearance: PRESENT: no acute distress, well-developed, well-nourished Head exam: PRESENT: atraumatic, normocephalic Eye exam: PRESENT: conjunctiva pink, EOMI, PERRLA. ABSENT: scleral icterus Ear exam: PRESENT: normal external ear exam Mouth exam: PRESENT: moist, tongue midline Neck exam: ABSENT: carotid bruit, JVD, lymphadenopathy, thyromegaly Respiratory exam: PRESENT: clear to auscultation guille. ABSENT: rales, rhonchi, wheezes Cardiovascular exam: PRESENT: RRR. ABSENT: diastolic murmur, rubs, systolic murmur Pulses: PRESENT: normal dorsalis pedis pul Vascular exam: PRESENT: normal capillary refill GI/Abdominal exam: PRESENT: normal bowel sounds, soft. ABSENT: distended, guarding, mass, organolmegaly, rebound, tenderness Rectal exam: PRESENT: deferred Extremities exam: PRESENT: full ROM. ABSENT: calf tenderness, clubbing, pedal edema Neurological exam: PRESENT: alert, awake, oriented to person, oriented to place , oriented to time, oriented to situation, CN II-XII grossly intact. ABSENT: motor sensory deficit Psychiatric exam: PRESENT: appropriate affect, normal mood. ABSENT: homicidal ideation, suicidal ideation Skin exam: PRESENT: dry, intact, warm. ABSENT: cyanosis, rash Results Laboratory Results: 09/18/18 04:26 09/18/18 04:26 09/18/18 09/18/18 04:26 04:26 WBC 4.5 RBC 4.73 Hgb 14.8 Hct 43.4 MCV 92 MCH 31.2 MCHC 34.0 RDW 13.1 Plt Count 115 L Seg Neutrophils % 90.1 H Lymphocytes % 7.6 L Monocytes % 2.2 L Eosinophils % 0.0 Basophils % 0.1 Absolute Neutrophils 4.0 Absolute Lymphocytes 0.3 L Absolute Monocytes 0.1 Absolute Eosinophils 0.0 Absolute Basophils 0.0 Sodium 141.2 Potassium 4.8 Chloride 104 Carbon Dioxide 25 Anion Gap 12 BUN 15 Creatinine 0.96 Est GFR ( Amer) > 60 Est GFR (Non-Af Amer) > 60 Glucose 195 H Calcium 9.4 Total Bilirubin 0.5 AST 24 ALT 35 Alkaline Phosphatase 60 Total Protein 5.8 L Albumin 3.3 L Impressions: Chest X-Ray 09/16/18 15:45 IMPRESSION: Cardiomegaly with mild pulmonary edema. Cannot exclude a limited right middle lobe or lower lobe pneumonia. Qualifiers - * PATIENT BEING DISCHARGED WITH ANY OF THE FOLLOWING DIAGNOSIS: No
[2018-09-18 13:28] VITALS: BP 131/77
[2018-09-18] MEDS ORDERED: ATORVASTATIN CALCIUM 40 MG TABLET PO SCH (22:00)
== END 2018-09-18 13:51 | disposition home or self-care (01) ==
LOC: ER 15:16 → INTOOBSV 18:38 → EH 18:38 → 4S 20:13
PROVIDERS: ADMIT Internal Medicine; ATTEND Internal Medicine
DX: J18.9 Pneumonia, unspecified organism (principal); J44.1 Chronic obstructive pulmonary disease with (acute) exacerbation; E78.5 Hyperlipidemia, unspecified; K21.9 Gastro-esophageal reflux disease without esophagitis; N40.0 Benign prostatic hyperplasia without lower urinary tract symptoms; Z79.899 Other long term (current) drug therapy; Z20.828 Contact with and (suspected) exposure to other viral communicable diseases; Z77.22 Contact with and (suspected) exposure to environmental tobacco smoke (acute) (chronic); Z90.49 Acquired absence of other specified parts of digestive tract
CPT/HCPCS: 93005; 94640 ×4; 99285; 96365; 36415 ×3; 87040 ×2; 87070; 87205; 85025 ×3; 87077; 80053 ×3; 84484; 87186; 87804; 83880; 71046; 93010; 94667; 94762 ×3; 94668 ×2; G0378 ×3; J3490 ×3; J2920 ×2; J7030; J0456; J0696; J7620 ×3

== ENCOUNTER 2020-01-24 13:24 | Emergency (ER) | payer OTHER, MEDICARE, BC ==
[2020-01-24 13:33] VITALS: BP 139/55
--- NOTE | 2020-01-24 13:44 | ER Document Report ---
HPI - HPI Time Seen by Provider: 01/24/20 13:38 Onset: Just prior to arrival Onset/Duration: Sudden Quality of pain: Achy Pain Level: 2 Context: Patient was using a table saw and accidentally got his finger caught on the blade. Patient with laceration to distal tip of his right fourth finger. Patient reports tetanus immunization is currently up-to-date. Associated Symptoms: Other Exacerbated by: Movement Relieved by: Denies Similar symptoms previously: No Recently seen / treated by doctor: No - ROS ROS below otherwise negative: Yes Systems Reviewed and Negative: Yes All other systems reviewed and negative - NEURO Neurology: DENIES: Weakness - REPRODUCTIVE Reproductive: DENIES: : - MUSCULOSKELETAL Musculoskeletal: REPORTS: Extremity pain - DERM Skin Color: Normal Skin Problems: Laceration Past Medical History - General Information source: Patient - Social History Smoking Status: Never Smoker Chew tobacco use (# tins/day): No Frequency of alcohol use: None Drug Abuse: None Occupation: retired Family History: Reviewed & Not Pertinent Patient has suicidal ideation: No Patient has homicidal ideation: No - Past Medical History Cardiac Medical History: Reports: Hx Hypercholesterolemia Renal/ Medical History: Reports: Hx Benign Prostatic Hyperplasia. Denies: Hx Peritoneal Dialysis GI Medical History: Reports: Hx Gastroesophageal Reflux Disease Past Surgical History: Reports: Hx Cholecystectomy - 2011 - Immunizations Hx Diphtheria, Pertussis, Tetanus Vaccination: Yes Vertical Provider Document - CONSTITUTIONAL Agree With Documented VS: Yes Exam Limitations: No Limitations General Appearance: WD/WN, No Apparent Distress - INFECTION CONTROL TRAVEL OUTSIDE OF THE [place] IN LAST 30 DAYS: No - HEENT HEENT: Atraumatic, Normocephalic - NECK Neck: Normal Inspection - RESPIRATORY Respiratory: No Respiratory Distress - CARDIOVASCULAR Pulses: Normal: Radial - MUSCULOSKELETAL/EXTREMETIES Musculoskeletal/Extremeties: MAEW, FROM - NEURO Level of Consciousness: Awake, Alert, Appropriate Motor/Sensory: No Motor Deficit - DERM Integumentary: Warm, Dry, Laceration - Irregular superficial laceration to distal tip of right fourth finger Course - Re-evaluation Re-evalutation: 01/24/20 14:22 No acute fracture noted. Patient with avulsion laceration that is irregular to the tip of the right fourth finger. No Sutures required at this time. - Vital Signs Vital signs: Temp Pulse Resp BP Pulse Ox 97.8 F 75 18 139/55 H 97 01/24/20 13:28 01/24/20 13:28 01/24/20 13:28 01/24/20 13:28 01/24/20 13:28 - Diagnostic Test Radiology reviewed: Image reviewed, Reports reviewed Discharge - Discharge Clinical Impression: Finger laceration Qualifiers: Encounter type: initial encounter Finger: ring finger Damage to nail status: without damage Foreign body presence: without foreign body Laterality: right Qualified Code(s): S61.214A - Laceration without foreign body of right ring finger without damage to nail, initial encounter Condition: Stable Disposition: HOME, SELF-CARE Instructions: Prophylactic Antibiotic ([facility]), Avulsion Injury ([facility]), Dressing Instructions for Open Wounds ([facility]), Cephalexin ([facility]) Additional Instructions: Return immediately for any new or worsening symptoms Followup with your primary care provider, call tomorrow to make a followup appointment Change dressing daily, monitor for any signs of infection such as redness, streaks, fever, or purulent drainage Prescriptions: Cephalexin Monohydrate [Keflex 500 mg Capsule] 500 mg PO Q6H 5 Days #20 capsule [facility] [Primary Care Provider] - Follow up as needed
--- NOTE | 2020-01-24 14:04 | RADIOLOGY REPORT (SQ) ---
EXAM DESCRIPTION: FINGER RIGHT IMAGES COMPLETED DATE/TIME: 01/24/2020 1:55 pm REASON FOR STUDY: table saw injury, R 4th finger injury COMPARISON: None. NUMBER OF VIEWS: Three views right hand and ring finger. LIMITATIONS: None. FINDINGS: Soft tissue injury to the tip of the ring finger. No radiopaque foreign body. No underly ing displaced fracture. OTHER: No other significant finding. IMPRESSION: Soft tissue injury to the ring finger tip. No foreign body or fracture detected. TECHNICAL DOCUMENTATION: JOB ID: [id number] Reading location - IP/workstation name: [email or web address]
== END 2020-01-24 14:57 | disposition home or self-care (01) ==
LOC: ER 13:24
DX: S61.214A Laceration without foreign body of right ring finger without damage to nail, initial encounter (principal); W29.8XXA Contact with other powered hand tools and household machinery, initial encounter
CPT/HCPCS: 99283